=== PATIENT | male | born 1985 | race Hispanic/Latino ===

== ENCOUNTER → 2025-01-30 | Day surgery (SDC) | payer OTHER ==
[~2025-01-30] MED LIST: FENTANYL CITRATE/PF 100MCG/2 ML INJ ONE; LIDOCAINE HCL 2% LOCAL INJ 5 ML SDV VIAL INJ ONE; METOCLOPRAMIDE HCL 10 MG/2ML VIAL ONE; MIDAZOLAM HCL 2 MG/2 ML VIAL ONE; ONDANSETRON HCL INJ 2MG/ML 2ML 2 MG/ML VIAL ONE; ONDANSETRON HCL4 MG PO; PANTOPRAZOLE SO40 MG PO; PROMETHAZINE HC25 M1 PO; PROPOFOL IV EMULSION 10 MG/ML 20 ML VIAL ONE
[2025-01-30] MEDS: LACTATED RINGER'S 1,000 ML ONE (11:13)
[2025-01-30 12:45] VITALS: TEMP 99.2
[2025-01-30 13:00] VITALS: BP 101/64; PULSE 81; RESP 16; O2SAT 99
== END | disposition home or self-care (01) ==
LOC: OR 10:32
PROVIDERS: ATTEND Internal Medicine Gastroenterology
DX: K20.80 Other esophagitis without bleeding (principal); K29.50 Unspecified chronic gastritis without bleeding; K85.80 Other acute pancreatitis without necrosis or infection; R63.4 Abnormal weight loss; Z68.23 Body mass index [BMI] 23.0-23.9, adult
CPT/HCPCS: 43239; J2003; J2250; J2405; J2470; J2704; J2765; J3010; J7121

== ENCOUNTER 2025-02-16 11:24 | Emergency (ER) | payer OTHER ==
[~2025-02-16] VITALS: Ht 167.6 cm; Wt 64.9 kg
[~2025-02-16 11:24] MED LIST changes: -FENTANYL CITRATE/PF 100MCG/2 ML INJ ONE; -LIDOCAINE HCL 2% LOCAL INJ 5 ML SDV VIAL INJ ONE; -METOCLOPRAMIDE HCL 10 MG/2ML VIAL ONE; -MIDAZOLAM HCL 2 MG/2 ML VIAL ONE; -ONDANSETRON HCL INJ 2MG/ML 2ML 2 MG/ML VIAL ONE; -PROPOFOL IV EMULSION 10 MG/ML 20 ML VIAL ONE
[2025-02-16 11:28] VITALS: PULSE 98; RESP 17; TEMP 98.6
[2025-02-16 12:26] LABS: BASOPHILS % 0.3 % (0.0-1.0); EOSINOPHILS % 0.2 % (0.0-6.0); LYMPHOCYTES % 15.2 % (18.0-39.1); MONOCYTES % 4.5 % (4.4-11.3); NEUTROPHILS % 79.5 % (38.7-80.0); RED CELL DISTRIBUTION WIDTH 12.7 % (11.7-14.4)
[2025-02-16 12:41] LABS: INR 0.98
[2025-02-16 12:49] LABS: EST GLOMERULAR FILTRATION RATE 116.0 ML/MIN (>=60)
[2025-02-16] MEDS: DIPHENHYDRAMINE HCL INJ 50 MG/ML VIAL IV ONE ×2 (13:20→14:57)
[2025-02-16] MEDS: PROMETHAZINE 12.5MG/ NACL 0.9% 12.5 MG/50 ML BAG IV ONE (13:21)
[2025-02-16] MEDS: SODIUM CHLORIDE 0.9% 1000ML 1,000 ML IV STA ×2 (13:21→14:57)
[2025-02-16 13:59] LABS: LEUKOCYTE ESTERASE ,URINE NEGATIVE (NEGATIVE); PROTEIN,URINE DIPSTICK NEGATIVE (NEGATIVE); URINE UROBILINOGEN 0.2 mg/dL (0.2 - 1)
[2025-02-16 14:01] LABS: AMPHETAMINES SCREEN,URINE NEGATIVE (NEGATIVE); CANNABINOIDS SCREEN,URINE NEGATIVE (NEGATIVE); COCAINE SCREEN,URINE POSITIVE (NEGATIVE); METHADONE SCREEN, URINE NEGATIVE (NEGATIVE); OPIATES SCREEN,URINE NEGATIVE (NEGATIVE)
[2025-02-16] MEDS ORDERED: IOPAMIDOL 370 MG/ML 100 ML INFUS..BTL INJ ONE (14:02)
[2025-02-16 14:30] LABS: WBC,URINE (MAN) 0-5 /HPF (0-5)
[2025-02-16 14:31] LABS: EPITHELIAL CELLS,URINE RARE /LPF
[2025-02-16] MEDS: ONDANSETRON HCL INJ 2MG/ML 2ML 2 MG/ML VIAL IV STA (14:57)
[2025-02-16] MEDS ORDERED: PANTOPRAZOLE SO40 MG PO (15:57)
[2025-02-16 18:32] VITALS: BP 120/77; PULSE 69; RESP 16; TEMP 98.4; O2SAT 98
== END 2025-02-16 18:34 | disposition home or self-care (01) ==
LOC: ER 11:34
DX: R11.2 Nausea with vomiting, unspecified (principal); K29.70 Gastritis, unspecified, without bleeding; R10.9 Unspecified abdominal pain; F17.210 Nicotine dependence, cigarettes, uncomplicated
CPT/HCPCS: 36415; 74177; 80053; 80307; 81001; 83690; 83735; 84484; 85025; 85610; 85730; 99284; J1200; J2470; J2550; J7030; Q9967

== ENCOUNTER 2025-03-05 12:30 | Emergency (ER) | payer OTHER ==
[~2025-03-05] VITALS: Ht 167.6 cm; Wt 64.9 kg
[2025-03-05 12:50] VITALS: PULSE 71; RESP 18; TEMP 98.6
[2025-03-05 13:29] LABS: BASOPHILS % 0.2 % (0.0-1.0); EOSINOPHILS % 0.2 % (0.0-6.0); LYMPHOCYTES % 12.7 % (18.0-39.1); MONOCYTES % 2.9 % (4.4-11.3); NEUTROPHILS % 83.7 % (38.7-80.0); RED CELL DISTRIBUTION WIDTH 12.7 % (11.7-14.4)
[2025-03-05 13:41] LABS: EST GLOMERULAR FILTRATION RATE 114.0 ML/MIN (>=60)
[2025-03-05] MEDS: SODIUM CHLORIDE 0.9% 1000ML 1,000 ML IV ONE (13:41)
[2025-03-05] MEDS: SUCRALFATE 1 GM TAB PO STA (13:42)
[2025-03-05] MEDS: FAMOTIDINE 20 MG/2 ML VIAL IV STA (13:42)
[2025-03-05] MEDS: METOCLOPRAMIDE HCL 10 MG/2ML VIAL IV ONE (13:47)
[2025-03-05 14:45] LABS: AMPHETAMINES SCREEN,URINE NEGATIVE (NEGATIVE); CANNABINOIDS SCREEN,URINE NEGATIVE (NEGATIVE); COCAINE SCREEN,URINE NEGATIVE (NEGATIVE); METHADONE SCREEN, URINE NEGATIVE (NEGATIVE); OPIATES SCREEN,URINE NEGATIVE (NEGATIVE)
[2025-03-05 14:46] LABS: LEUKOCYTE ESTERASE ,URINE NEGATIVE (NEGATIVE); PROTEIN,URINE DIPSTICK NEGATIVE (NEGATIVE); URINE UROBILINOGEN 0.2 mg/dL (0.2 - 1)
[2025-03-05] MEDS: DONNATAL/LIDOCAINE/MAALOX 30 ML SUSP PO ONE (14:49)
[2025-03-05] MEDS ORDERED: PANTOPRAZOLE SO40 MG PO (15:44)
[2025-03-05] MEDS ORDERED: REGLAN10 MG PO (15:44)
[2025-03-05 16:05] VITALS: BP 121/72; PULSE 59; RESP 16; TEMP 98.4; O2SAT 99
== END 2025-03-05 15:58 | disposition home or self-care (01) ==
LOC: ER 13:14
DX: R10.12 Left upper quadrant pain (principal); K29.70 Gastritis, unspecified, without bleeding; R11.2 Nausea with vomiting, unspecified
CPT/HCPCS: 36415; 80053; 80307; 80320; 81001; 83690; 85025; 99283; J1308; J2765; J7030